=== PATIENT | female | born 1960 | race Caucasian/White ===

== ENCOUNTER 2024-06-29 13:45 | Inpatient (IN) | payer MEDICARE ==
[~2024-06-29 13:45] MED LIST: Iopamidol 370 76% 100 ML VIAL ONE
[2024-06-29 14:50] LABS: #Basophils 0.08 10x3/uL (0.0-0.2); #Eosinphils 0.32 10x3/uL (0.0-0.5); #Monocytes 0.95 10x3/uL (0.0-1.1); #Neutrophils 12.18 10x3/uL (1.5-8.4); %Basophils 0.5 % (0.0-2.0); %Eosinophils 1.9 % (0.0-6.0); %Monocytes 5.7 % (0.0-10.0); %Neutrophils 73.5 % (40.0-75.0); Hematocrit 35.2 % (34.9-44.5); Mean Corpuscular HGB CONC 34.1 g/dL (32.0-36.0); Mean Corpuscular Hemoglobin 32.8 pg (27.0-33.0); Mean Corpuscular Volume 96.2 fL (81.6-98.3); Mean Platelet Volume 8.2 fL (7.4-10.4); Platelet Count 524 10x3/uL (150-450); RBC Distribution Width 14.4 % (11.5-14.5); Red Blood Cell (RBC) Count 3.66 10x6/uL (3.90-5.03); White Blood Cell (WBC) Count 16.6 10x3/uL (3.5-10.5)
[2024-06-29 14:55] LABS: ALT (SGPT) 12 U/L (8-55); AST (SGOT) 12 U/L (5-34); Albumin 3.4 g/dL (3.4-4.8); Alkaline Phosphatase 113 U/L (40-110); Anion Gap 14 mmol/L (10-20); BUN (Urea Nitrogen) 26 mg/dL (9.8-20.1); Bilirubin, Total 0.3 mg/dL (0.2-1.2); Calc. Creatinine Clearance 0 mL/min (70-130); Carbon Dioxide 23 mmol/L (23-31); Chloride 102 mmol/L (98-107); Estimated GFR 46; Globulin 4.4 g/dL (2.4-3.5); Glucose 95 mg/dL (80-115); Potassium 4.3 mmol/L (3.5-5.1); Protein, Total 7.8 g/dL (5.8-8.1); Sodium 135 mmol/L (136-145)
[2024-06-29 15:03] LABS: Bilirubin Neg (Negative); Blood, Urine 250 (Negative); Clarity Cloudy (Clear); Glucose, Urine (Dipstick) Normal (Negative); Ketone, Urine Negative (Negative); Leukocyte 500 (Negative); Nitrite Positive (Negative); Protein, Urine (Dipstick) 100 mg/dl (Neg-Trace); Specific Gravity, Urine 1.015 (1.005-1.030); Urobilinogen Normal mg/dL (Less than 2)
[2024-06-29 15:38] LABS: Bacteria/HPF 4+ HPF (None Seen); CAUTI Indications for Culture Pelvic or flank pain; Squamous Epithelial 0-3 HPF (0-3); WBC/HPF Greater than 50 HPF (0-3)
[2024-06-29 15:42] LABS: Urine Culture Reflex Yes Yes
[2024-06-29 15:43] LABS: Lipase 41 U/L (8-78); Magnesium 1.9 mg/dL (1.6-2.6)
[2024-06-29] MEDS ORDERED: cefTRIAXone (ROCEPHIN) 1 GM VIAL ONE (17:29)
[2024-06-29] MEDS ORDERED: metroNIDAZOLE 500 MG (100 mL) BAG ONE (17:29)
[2024-06-29] MEDS ORDERED: Ondansetron PF 4 MG/2 ML Vial IVP PRN (19:39)
[2024-06-29] MEDS ORDERED: Zolpidem Tartrate 5 MG TAB PO PRN (19:39)
[2024-06-29] MEDS ORDERED: Ipratropium/Albuterol 3 ML NEB NEB PRN (19:41)
[2024-06-29] MEDS ORDERED: Morphine 2 MG/ML VIAL SLOW IVP PRN (19:42)
[2024-06-29 20:47] VITALS: BMI 26.4
[2024-06-29] MEDS: Lactated Ringer's 500 ML IV SCH (21:05)
[2024-06-29] MEDS: Dextrose 5%-Lactated Ringers 1,000 ML IV SCH (22:08)
[2024-06-29] MEDS: Atorvastatin Calcium 20 MG TAB PO SCH (22:09)
[2024-06-29] MEDS: Famotidine/PF 20 mg/2ml Vial SLOW IVP SCH (22:09)
[2024-06-29] MEDS: Piperacillin/Tazobactam 3.375 GM in Sodium Chloride 0.9% 100 ML IVPB SCH ×2 (22:10→22:27)
[2024-06-29] MEDS: Acetaminophen 325 MG TAB PO PRN (22:39)
[2024-06-30 05:03] LABS: #Basophils 0.05 10x3/uL (0.0-0.2); #Eosinphils 0.34 10x3/uL (0.0-0.5); #Neutrophils 5.97 10x3/uL (1.5-8.4); %Basophils 0.5 % (0.0-2.0); %Eosinophils 3.4 % (0.0-6.0); %Lymphocytes 28.4 % (18.0-47.0); %Neutrophils 59.4 % (40.0-75.0); Hematocrit 29.8 % (34.9-44.5); Hemoglobin 9.8 g/dL (12.0-15.5); Mean Corpuscular HGB CONC 32.9 g/dL (32.0-36.0); Mean Corpuscular Hemoglobin 31.9 pg (27.0-33.0); Mean Corpuscular Volume 97.1 fL (81.6-98.3); Mean Platelet Volume 8.3 fL (7.4-10.4); Platelet Count 465 10x3/uL (150-450); RBC Distribution Width 14.5 % (11.5-14.5); Red Blood Cell (RBC) Count 3.07 10x6/uL (3.90-5.03)
[2024-06-30 05:04] LABS: ALT (SGPT) 10 U/L (8-55); AST (SGOT) 8 U/L (5-34); Albumin 2.7 g/dL (3.4-4.8); Alkaline Phosphatase 78 U/L (40-110); Anion Gap 12 mmol/L (10-20); BUN (Urea Nitrogen) 23 mg/dL (9.8-20.1); Bilirubin, Total 0.2 mg/dL (0.2-1.2); Calc. Creatinine Clearance 59 mL/min (70-130); Calcium 8.5 mg/dL (7.8-10.44); Carbon Dioxide 22 mmol/L (23-31); Chloride 104 mmol/L (98-107); Estimated GFR 57; Globulin 3.1 g/dL (2.4-3.5); Glucose 80 mg/dL (80-115); Potassium 4.4 mmol/L (3.5-5.1); Protein, Total 5.8 g/dL (5.8-8.1); Sodium 134 mmol/L (136-145)
[2024-06-30] MEDS: Mometasone 200 MCG/Formoterol 5 MCG 60 PUFF INHALER INH SCH (06:49)
[2024-06-30] MEDS: Aspirin 81 mg Enteric Coated Tablet PO SCH (09:19)
[2024-06-30] MEDS: Amlodipine 5 MG TAB PO SCH (09:19)
[2024-06-30] MEDS: Enoxaparin 40 MG (0.4 mL) SYRINGE SC SCH (09:20)
[2024-06-30 11:44] VITALS: BMI 26.4
[2024-06-30] MEDS: Clopidogrel Bisulfate 75 MG TAB PO SCH (13:00)
[2024-06-30] MEDS: Loratadine 10 MG TAB PO SCH (13:00)
[2024-07-01 05:01] LABS: ALT (SGPT) 10 U/L (8-55); AST (SGOT) 8 U/L (5-34); Albumin 2.9 g/dL (3.4-4.8); Alkaline Phosphatase 79 U/L (40-110); Anion Gap 14 mmol/L (10-20); BUN (Urea Nitrogen) 16 mg/dL (9.8-20.1); Bilirubin, Total 0.2 mg/dL (0.2-1.2); Calc. Creatinine Clearance 60 mL/min (70-130); Calcium 8.9 mg/dL (7.8-10.44); Carbon Dioxide 22 mmol/L (23-31); Chloride 104 mmol/L (98-107); Estimated GFR 58; Globulin 3.3 g/dL (2.4-3.5); Glucose 108 mg/dL (80-115); Potassium 4.6 mmol/L (3.5-5.1); Protein, Total 6.2 g/dL (5.8-8.1); Sodium 135 mmol/L (136-145)
[2024-07-01 05:09] LABS: #Basophils 0.04 10x3/uL (0.0-0.2); #Eosinphils 0.16 10x3/uL (0.0-0.5); #Monocytes 0.45 10x3/uL (0.0-1.1); #Neutrophils 6.99 10x3/uL (1.5-8.4); %Basophils 0.4 % (0.0-2.0); %Eosinophils 1.7 % (0.0-6.0); %Lymphocytes 16.9 % (18.0-47.0); %Monocytes 4.9 % (0.0-10.0); %Neutrophils 75.8 % (40.0-75.0); Hematocrit 29.4 % (34.9-44.5); Hemoglobin 10.2 g/dL (12.0-15.5); Mean Corpuscular HGB CONC 34.7 g/dL (32.0-36.0); Mean Corpuscular Hemoglobin 33.4 pg (27.0-33.0); Mean Corpuscular Volume 96.4 fL (81.6-98.3); Mean Platelet Volume 8.2 fL (7.4-10.4); Platelet Count 429 10x3/uL (150-450); RBC Distribution Width 14.4 % (11.5-14.5); Red Blood Cell (RBC) Count 3.05 10x6/uL (3.90-5.03); White Blood Cell (WBC) Count 9.2 10x3/uL (3.5-10.5)
[2024-07-01] MEDS: Clopidogrel Bisulfate 75 MG TAB PO SCH (09:00)
[2024-07-01] MEDS: Loratadine 10 MG TAB PO SCH (09:00)
[2024-07-01 12:17] VITALS: BP 144/71; TEMP 97.4
== END 2024-07-01 14:20 | disposition home or self-care (01) | DRG 872 ==
LOC: CSHERS 13:45 → OBSVTOIN 19:39 → CSHTELE 19:39
PROVIDERS: ADMIT Student in an Organized Health Care Education/Training Program; ATTEND Family Medicine
DX: A41.50 Gram-negative sepsis, unspecified (principal); K57.20 Diverticulitis of large intestine with perforation and abscess without bleeding; N12 Tubulo-interstitial nephritis, not specified as acute or chronic; N32.1 Vesicointestinal fistula; N17.9 Acute kidney failure, unspecified; F17.210 Nicotine dependence, cigarettes, uncomplicated; E78.5 Hyperlipidemia, unspecified; J44.9 Chronic obstructive pulmonary disease, unspecified; I10 Essential (primary) hypertension; D64.9 Anemia, unspecified; Z90.2 Acquired absence of lung [part of]; Z98.51 Tubal ligation status; Z90.49 Acquired absence of other specified parts of digestive tract; Z71.6 Tobacco abuse counseling
CPT/HCPCS: 36415; 74177; 80053; 81001; 83605; 83690; 83735; 85025; 87040; 87086; 94760; 96365; 96367; J0696; J1650; J2543; J3490; J7120; Q9967

== ENCOUNTER 2024-08-30 16:30 | Inpatient (IN) | payer MEDICARE ==
[2024-09-02] MEDS ORDERED: Midazolam HCl 2 mg/2 ml Vial ONE ×2 (10:00→11:08)
[2024-09-02] MEDS ORDERED: Bupivacaine 0.25% HCL 30 ML VIAL ONE (10:01)
[2024-09-02] MEDS ORDERED: fentaNYL 50 mcg/mL 1 mL Vial ONE ×7 (10:01→16:44)
[2024-09-02] MEDS ORDERED: Lidocaine 2% PF 5 ML VIAL ONE (10:19)
[2024-09-02] MEDS ORDERED: PROPOFOL 20 ML ONE (10:19)
[2024-09-02] MEDS ORDERED: Lidocaine 4% PF 5 ML AMP ONE (10:19)
[2024-09-02] MEDS ORDERED: Rocuronium Bromide 10 MG/ML (10ML VIAL) ONE ×2 (10:19→14:30)
[2024-09-02] MEDS ORDERED: Indocyanine Green 25 MG/10 ML VIAL ONE (10:50)
[2024-09-02] MEDS ORDERED: Bupivacaine HCl 0.5%/Epinephrine 1:200,000/PF 30 ml Vial ONE (10:50)
[2024-09-02] MEDS ORDERED: Methylene Blue 50 MG/10 ML AMPUL ONE (10:50)
[2024-09-02] MEDS ORDERED: ceFOXitin 1 GM VIAL ONE ×2 (11:23→13:29)
[2024-09-02] MEDS ORDERED: PHENYLEPHRINE-NS 100 MCG/ML 10 ML SYRINGE ONE (13:57)
[2024-09-02] MEDS ORDERED: ePHEDrine Sulfate 50 MG/10 ML VIAL ONE (15:06)
[2024-09-02] MEDS ORDERED: SUGAMMADEX SODIUM 200 MG/2 ML VIAL ONE (15:27)
[2024-09-02] MEDS ORDERED: Promethazine HCl 25 MG/ML VIAL IM PRN (15:38)
[2024-09-02] MEDS ORDERED: Ipratropium/Albuterol 3 ML NEB NEB PRN (15:38)
[2024-09-02] MEDS ORDERED: hydrALAZINE 20 MG/ML VIAL ONE (16:01)
[2024-09-02 17:29] VITALS: BMI 264560.9
[2024-09-02] MEDS: Sodium Chloride 0.9% 1,000 ML IV SCH (17:50)
[2024-09-02] MEDS: Ketorolac Tromethamine 30 MG (1 mL) VIAL IVP SCH (17:52)
[2024-09-02] MEDS: hydrALAZINE 20 MG/ML VIAL SLOW IVP PRN (19:38)
[2024-09-02] MEDS: cefOXitin 2 GM in Sodium Chloride 0.9% 100 ML IVPB SCH (21:18)
[2024-09-02] MEDS: Enoxaparin 30 MG (0.3 mL) SYRINGE SC SCH (21:19)
[2024-09-02] MEDS: Famotidine 20 MG TAB PO SCH (21:19)
[2024-09-02] MEDS: Morphine 2 MG/ML VIAL SLOW IVP PRN (22:03)
[2024-09-03 04:33] LABS: #Basophils 0.01 10x3/uL (0.0-0.2); #Monocytes 0.75 10x3/uL (0.0-1.1); #Neutrophils 11.62 10x3/uL (1.5-8.4); %Basophils 0.1 % (0.0-2.0); %Lymphocytes 7.6 % (18.0-47.0); %Monocytes 5.6 % (0.0-10.0); %Neutrophils 86.3 % (40.0-75.0); Hematocrit 32.3 % (34.9-44.5); Hemoglobin 10.5 g/dL (12.0-15.5); Mean Corpuscular HGB CONC 32.5 g/dL (32.0-36.0); Mean Corpuscular Hemoglobin 33.8 pg (27.0-33.0); Mean Corpuscular Volume 103.9 fL (81.6-98.3); Mean Platelet Volume 8.6 fL (7.4-10.4); Platelet Count 338 10x3/uL (150-450); Red Blood Cell (RBC) Count 3.11 10x6/uL (3.90-5.03); White Blood Cell (WBC) Count 13.5 10x3/uL (3.5-10.5)
[2024-09-03 04:40] LABS: Anion Gap 18 mmol/L (10-20); BUN (Urea Nitrogen) 16 mg/dL (9.8-20.1); Calc. Creatinine Clearance 57 mL/min (70-130); Calcium 7.8 mg/dL (7.8-10.44); Carbon Dioxide 15 mmol/L (23-31); Chloride 109 mmol/L (98-107); Estimated GFR 54; Glucose 113 mg/dL (80-115); Potassium 3.9 mmol/L (3.5-5.1); Sodium 138 mmol/L (136-145)
[2024-09-03] MEDS: Lactated Ringer's 1,000 ML IV SCH (08:03)
[2024-09-03] MEDS: Morphine 4 MG/ML VIAL SLOW IVP PRN (09:38)
[2024-09-03] MEDS: FLU (Fluad Triv) TS24-25 (65UP)/MF59C/PF 45 MCG/0.5 ML Syringe IM ONE (09:41)
[2024-09-03] MEDS ORDERED: Acetaminophen 325 MG TAB PO PRN (15:40)
[2024-09-03] MEDS: HYDROcodone/Acetaminophen 7.5/325 mg Tablet PO PRN (16:00)
[2024-09-03] MEDS: Valsartan 80 MG TAB PO SCH (18:32)
[2024-09-03] MEDS: Famotidine 20 MG TAB PO SCH ×2 (18:48→21:29)
[2024-09-04 04:06] LABS: #Basophils 0.05 10x3/uL (0.0-0.2); #Eosinophils 0.04 10x3/uL (0.0-0.5); #Monocytes 0.78 10x3/uL (0.0-1.1); #Neutrophils 7.89 10x3/uL (1.5-8.4); %Basophils 0.5 % (0.0-2.0); %Eosinophils 0.4 % (0.0-6.0); %Lymphocytes 16.8 % (18.0-47.0); %Monocytes 7.4 % (0.0-10.0); %Neutrophils 74.2 % (40.0-75.0); Hematocrit 29.7 % (34.9-44.5); Hemoglobin 9.6 g/dL (12.0-15.5); Mean Corpuscular HGB CONC 32.3 g/dL (32.0-36.0); Mean Corpuscular Hemoglobin 33.9 pg (27.0-33.0); Mean Corpuscular Volume 104.9 fL (81.6-98.3); Mean Platelet Volume 8.7 fL (7.4-10.4); Platelet Count 297 10x3/uL (150-450); RBC Distribution Width 17.2 % (11.5-14.5); Red Blood Cell (RBC) Count 2.83 10x6/uL (3.90-5.03); White Blood Cell (WBC) Count 10.6 10x3/uL (3.5-10.5)
[2024-09-04 04:11] LABS: Anion Gap 15 mmol/L (10-20); BUN (Urea Nitrogen) 16 mg/dL (9.8-20.1); Calc. Creatinine Clearance 69 mL/min (70-130); Calcium 7.3 mg/dL (7.8-10.44); Carbon Dioxide 16 mmol/L (23-31); Chloride 112 mmol/L (98-107); Estimated GFR 68; Glucose 78 mg/dL (80-115); Potassium 3.9 mmol/L (3.5-5.1); Sodium 139 mmol/L (136-145)
[2024-09-04] MEDS: D5 1/2 NS w/20 mEq KCL 1,000 ML IV SCH (10:14)
[2024-09-04] MEDS: Valsartan 80 MG TAB PO SCH (10:15)
[2024-09-04] MEDS: Famotidine 20 MG TAB PO SCH (10:15)
[2024-09-04 14:02] LABS: Bilirubin Neg (Negative); Blood, Urine 25 (Negative); Clarity Clear (Clear); Glucose, Urine (Dipstick) Normal (Negative); Ketone, Urine 50 mg/dL (Negative); Leukocyte 25 (Negative); Nitrite Negative (Negative); Protein, Urine (Dipstick) 30 mg/dl (Neg-Trace); Urobilinogen Normal mg/dL (Less than 2)
[2024-09-04 14:11] LABS: Bacteria/HPF 2+ HPF (None Seen); CAUTI Indications for Culture Alt mental st,lethar; Squamous Epithelial 0-3 HPF (0-3); Urine Culture Reflex No No
[2024-09-04] MEDS: Ciprofloxacin Lactate/D5W 400 MG in Premix 1 BAG IVPB SCH (16:44)
[2024-09-04] MEDS: HYDROcodone/Acetaminophen 7.5/325 mg Tablet PO PRN (17:11)
[2024-09-04] MEDS: Enoxaparin 40 MG (0.4 mL) SYRINGE SC SCH (22:39)
[2024-09-05 04:19] LABS: #Basophils 0.04 10x3/uL (0.0-0.2); #Eosinophils 0.22 10x3/uL (0.0-0.5); #Monocytes 0.79 10x3/uL (0.0-1.1); #Neutrophils 6.72 10x3/uL (1.5-8.4); %Basophils 0.4 % (0.0-2.0); %Eosinophils 2.3 % (0.0-6.0); %Lymphocytes 19.1 % (18.0-47.0); %Monocytes 8.2 % (0.0-10.0); %Neutrophils 69.6 % (40.0-75.0); Hematocrit 27.8 % (34.9-44.5); Hemoglobin 9.3 g/dL (12.0-15.5); Mean Corpuscular HGB CONC 33.5 g/dL (32.0-36.0); Mean Corpuscular Hemoglobin 34.3 pg (27.0-33.0); Mean Corpuscular Volume 102.6 fL (81.6-98.3); Mean Platelet Volume 8.6 fL (7.4-10.4); Platelet Count 276 10x3/uL (150-450); RBC Distribution Width 16.8 % (11.5-14.5); Red Blood Cell (RBC) Count 2.71 10x6/uL (3.90-5.03); White Blood Cell (WBC) Count 9.7 10x3/uL (3.5-10.5)
[2024-09-05 04:28] LABS: ALT (SGPT) 9 U/L (8-55); AST (SGOT) 11 U/L (5-34); Albumin 2.5 g/dL (3.4-4.8); Alkaline Phosphatase 55 U/L (40-110); Anion Gap 12 mmol/L (10-20); BUN (Urea Nitrogen) 13 mg/dL (9.8-20.1); Bilirubin, Total 0.3 mg/dL (0.2-1.2); Calc. Creatinine Clearance 79 mL/min (70-130); Calcium 7.5 mg/dL (7.8-10.44); Carbon Dioxide 17 mmol/L (23-31); Chloride 113 mmol/L (98-107); Estimated GFR 81; Globulin 2.9 g/dL (2.4-3.5); Glucose 118 mg/dL (80-115); Potassium 3.6 mmol/L (3.5-5.1); Protein, Total 5.4 g/dL (5.8-8.1); Sodium 138 mmol/L (136-145)
[2024-09-05] MEDS ORDERED: Iopamidol 370 76% 100 ML VIAL ONE (08:52)
[2024-09-05] MEDS: HYDROcodone/Acetaminophen 7.5/325 mg Tablet PO PRN (12:05)
[2024-09-05] MEDS: Morphine 2 MG/ML VIAL SLOW IVP PRN (20:49)
[2024-09-06 08:48] LABS: ALT (SGPT) 14 U/L (8-55); AST (SGOT) 18 U/L (5-34); Albumin 2.9 g/dL (3.4-4.8); Alkaline Phosphatase 69 U/L (40-110); Anion Gap 14 mmol/L (10-20); BUN (Urea Nitrogen) 7 mg/dL (9.8-20.1); Bilirubin, Total 0.4 mg/dL (0.2-1.2); Calc. Creatinine Clearance 76 mL/min (70-130); Calcium 8.5 mg/dL (7.8-10.44); Carbon Dioxide 16 mmol/L (23-31); Chloride 108 mmol/L (98-107); Estimated GFR 77; Globulin 3.6 g/dL (2.4-3.5); Glucose 148 mg/dL (80-115); Magnesium 1.5 mg/dL (1.6-2.6); Protein, Total 6.5 g/dL (5.8-8.1); Sodium 134 mmol/L (136-145)
[2024-09-06] MEDS: Valsartan 80 MG TAB PO SCH (08:51)
[2024-09-06 08:57] LABS: Critical Call Chemistry NUR.WB @0857
[2024-09-06 09:06] LABS: Free T4 (Free Thyroxine) 1.34 ng/dL (0.70-1.48); Thyroid Stimulating Hormone 0.7633 uIU/mL (0.35-4.94)
[2024-09-06 09:19] LABS: #Basophils 0.02 10x3/uL (0.0-0.2); #Eosinophils 0.13 10x3/uL (0.0-0.5); #Neutrophils 7.27 10x3/uL (1.5-8.4); %Basophils 0.2 % (0.0-2.0); %Eosinophils 1.4 % (0.0-6.0); %Lymphocytes 10.7 % (18.0-47.0); %Monocytes 7.7 % (0.0-10.0); %Neutrophils 79.6 % (40.0-75.0); Hematocrit 28.7 % (34.9-44.5); Hemoglobin 9.4 g/dL (12.0-15.5); Mean Corpuscular HGB CONC 32.8 g/dL (32.0-36.0); Mean Corpuscular Hemoglobin 33.5 pg (27.0-33.0); Mean Corpuscular Volume 102.1 fL (81.6-98.3); Platelet Count 308 10x3/uL (150-450); RBC Distribution Width 16.5 % (11.5-14.5); Red Blood Cell (RBC) Count 2.81 10x6/uL (3.90-5.03); White Blood Cell (WBC) Count 9.1 10x3/uL (3.5-10.5)
[2024-09-06] MEDS: Nystatin 500,000 UNITS/5 ML UDCUP SSW SCH (10:06)
[2024-09-06] MEDS: PHOS-NAK 1 PKT PACK PO SCH (10:21)
[2024-09-06] MEDS: Magnesium 2 GM/50 ML(in water) 2 GM in Premix 1 BAG IVPB SCH (10:23)
[2024-09-06] MEDS: Fluconazole 100 MG TAB PO SCH (12:36)
[2024-09-07] MEDS: Ondansetron PF 4 MG/2 ML Vial IVP PRN (02:09)
[2024-09-07 05:17] LABS: Anion Gap 14 mmol/L (10-20); BUN (Urea Nitrogen) 7 mg/dL (9.8-20.1); Calc. Creatinine Clearance 78 mL/min (70-130); Calcium 8.2 mg/dL (7.8-10.44); Carbon Dioxide 19 mmol/L (23-31); Chloride 106 mmol/L (98-107); Estimated GFR 79; Glucose 149 mg/dL (80-115); Magnesium 1.6 mg/dL (1.6-2.6); Phosphorus 2.7 mg/dL (2.3-4.7); Potassium 4.1 mmol/L (3.5-5.1); Sodium 135 mmol/L (136-145)
[2024-09-07] MEDS: Fluconazole 100 MG TAB PO SCH (08:26)
[2024-09-07] MEDS: Magnesium 2 GM/50 ML(in water) 2 GM in Premix 1 BAG IVPB SCH (11:03)
[2024-09-07] MEDS: Hydrochlorothiazide 25 MG TAB PO SCH ×2 (11:04→11:17)
[2024-09-07] MEDS: PHOS-NAK 1 PKT PACK PO SCH (11:04)
[2024-09-08] MEDS ORDERED: Ciprofloxacin Lactate D5W 400 mg (200 mL) BAG ONE ×2 (04:11→16:45)
[2024-09-08] MEDS ORDERED: Hydrochlorothiazide 25 MG TAB ONE (08:11)
[2024-09-08] MEDS ORDERED: Fluconazole 100 MG TAB ONE (08:11)
[2024-09-08] MEDS ORDERED: Valsartan 80 MG TAB ONE (08:11)
[2024-09-08] MEDS ORDERED: Famotidine 20 MG TAB ONE ×2 (08:11→21:01)
[2024-09-08] MEDS ORDERED: Lorazepam 2 MG/ML VIAL ONE (12:25)
[2024-09-08] MEDS ORDERED: Enoxaparin 40 MG (0.4 mL) SYRINGE ONE (21:01)
[2024-09-08] MEDS ORDERED: hydrALAZINE 20 MG/ML VIAL ONE (21:15)
[2024-09-09] MEDS ORDERED: Ciprofloxacin Lactate D5W 400 mg (200 mL) BAG ONE (05:30)
[2024-09-09] MEDS ORDERED: Valsartan 80 MG TAB ONE (09:00)
[2024-09-09] MEDS ORDERED: Fluconazole 100 MG TAB ONE (09:00)
[2024-09-09] MEDS ORDERED: Hydrochlorothiazide 25 MG TAB ONE (09:00)
[2024-09-09] MEDS ORDERED: Famotidine 20 MG TAB ONE ×2 (09:00→21:00)
[2024-09-09] MEDS ORDERED: Enoxaparin 40 MG (0.4 mL) SYRINGE ONE (21:00)
[2024-09-10] MEDS ORDERED: Famotidine 20 MG TAB ONE (09:00)
[2024-09-10] MEDS ORDERED: Clopidogrel Bisulfate 75 MG TAB ONE (09:00)
[2024-09-10] MEDS ORDERED: Hydrochlorothiazide 25 MG TAB ONE (09:00)
[2024-09-10] MEDS ORDERED: Valsartan 80 MG TAB ONE (09:00)
[2024-09-10] MEDS: Clopidogrel Bisulfate 75 MG TAB PO SCH (14:44)
[2024-09-10 20:46] LABS: Magnesium 2.1 mg/dL (1.6-2.6); Phosphorus 4.3 mg/dL (2.3-4.7)
[2024-09-11] MEDS: Clopidogrel Bisulfate 75 MG TAB ONE (13:46)
[2024-09-13 11:37] VITALS: BMI 26.4
[2024-09-14 14:27] VITALS: BP 109/67; TEMP 97.8
== END 2024-09-14 15:30 | DRG 329 ==
LOC: CSHTELE 09-02 08:55 → EDSTATUS 09-02 16:30 → CSHTELE 09-02 17:19
PROVIDERS: ADMIT Surgery; ATTEND Surgery
PROC: 0DTN4ZZ Resection of Sigmoid Colon, Percutaneous Endoscopic Approach (ICD-10-PCS; principal; 2024-09-02)
PROC: 8E0W4CZ Robotic Assisted Procedure of Trunk Region, Percutaneous Endoscopic Approach (ICD-10-PCS; 2024-09-02)
PROC: 3E033XZ Introduction of Vasopressor into Peripheral Vein, Percutaneous Approach (ICD-10-PCS; 2024-09-02)
PROC: 3E02340 Introduction of Influenza Vaccine into Muscle, Percutaneous Approach (ICD-10-PCS; 2024-09-02)
DX: K57.20 Diverticulitis of large intestine with perforation and abscess without bleeding (principal); G93.41 Metabolic encephalopathy; I63.232 Cerebral infarction due to unspecified occlusion or stenosis of left carotid arteries; N32.1 Vesicointestinal fistula; R47.01 Aphasia; N39.0 Urinary tract infection, site not specified; G81.94 Hemiplegia, unspecified affecting left nondominant side; E83.39 Other disorders of phosphorus metabolism; R00.0 Tachycardia, unspecified; J44.9 Chronic obstructive pulmonary disease, unspecified; I10 Essential (primary) hypertension; Z87.891 Personal history of nicotine dependence; Z79.899 Other long term (current) drug therapy; Z79.82 Long term (current) use of aspirin; R29.704 NIHSS score 4
CPT/HCPCS: 0042T; 36415; 36416; 70551; 74022; 80048; 80053; 81001; 82607; 83735; 84100; 84425; 84439; 84443; 85025; 88307; 94760; 94762; J0360; J0665; J0694; J0744; J1650; J1885; J2060; J2250; J2272; J2405; J2704; J3010; J3475; J3480; J7030; J7120; Q9967; S2900

== ENCOUNTER 2024-08-30 16:39 | Outpatient (CLI) | payer MEDICARE ==
[2024-08-30 17:28] LABS: Hematocrit 35.6 % (34.9-44.5); Hemoglobin 11.3 g/dL (12.0-15.5); Mean Corpuscular HGB CONC 31.7 g/dL (32.0-36.0); Mean Corpuscular Hemoglobin 33.2 pg (27.0-33.0); Mean Corpuscular Volume 104.7 fL (81.6-98.3); Mean Platelet Volume 8.8 fL (7.4-10.4); Platelet Count 363 10x3/uL (150-450); RBC Distribution Width 17.2 % (11.5-14.5); White Blood Cell (WBC) Count 13.4 10x3/uL (3.5-10.5)
[2024-08-30 17:40] LABS: Anion Gap 17 mmol/L (10-20); BUN (Urea Nitrogen) 21 mg/dL (9.8-20.1); Calc. Creatinine Clearance 0 mL/min (70-130); Calcium 9.3 mg/dL (7.8-10.44); Carbon Dioxide 19 mmol/L (23-31); Chloride 106 mmol/L (98-107); Estimated GFR 60; Glucose 89 mg/dL (80-115); Sodium 138 mmol/L (136-145)
[2024-08-30 19:55] LABS: Hemoglobin A1c 5.3 % (4.0-6.0)
== END 2024-08-30 16:40 | disposition home or self-care (01) ==
LOC: CSHLAB 16:39
PROVIDERS: ATTEND Surgery
DX: Z01.818 Encounter for other preprocedural examination (principal); K57.32 Diverticulitis of large intestine without perforation or abscess without bleeding; N82.3 Fistula of vagina to large intestine
CPT/HCPCS: 80048; 83036; 85027; 93005; 93010